=== PATIENT | male | born 2005 | race Two or more races ===

== ENCOUNTER 2025-09-22 19:43 | Emergency (ER) | payer OTHER ==
[~2025-09-22] VITALS: Ht 165.1 cm; Wt 69.4 kg
[~2025-09-22 19:43] MED LIST: CHILDREN'S100 MG/5 M PO; PENICILLIN V P500 MG PO; TYLENOL WITH C1 EACH PO
[2025-09-22] MEDS ORDERED: CELEBREX200 MG PO (20:51)
[2025-09-22 21:06] VITALS: BP 115/59
== END 2025-09-22 21:04 | disposition home or self-care (01) ==
LOC: ED 19:43
DX: S93.421A Sprain of deltoid ligament of right ankle, initial encounter (principal); X50.9XXA Other and unspecified overexertion or strenuous movements or postures, initial encounter
CPT/HCPCS: 73610; 73630; 99283